=== PATIENT | male | born 1945 | race Caucasian/White ===

== ENCOUNTER 2020-08-06 06:18 | Observation (INO) ==
--- NOTE | 2020-07-12 13:48 | PAT Medication Instructions ---
Medication Instructions Date of Service July 12, 2020 Home Medications Medication Instructions Recorded Darrian Rueda #1 ea 07/07/20 atorvastatin 20 mg PO QPM lisinopril 20 mg PO QAM multivitamin [Multiple Vitamins] 1 tab PO QAM omega 4-xxu-mho-fish oil [Fish Oil] 1 cap PO BID apple cider vinegar 600 mg PO QPM aspirin [Aspir-81] 81 mg PO QAM cetirizine [Allergy Relief (cetirizine)] 10 mg PO QAM fluticasone propionate [Flonase] 2 spray INTRANASAL QPM gentamicin sulfate (ped) (PF) 0 mg INTRATYMPANIC UD PRN hydrocortisone 1 applic TOPICAL BID PRN ibuprofen 200 mg PO Q6H PRN sildenafil 100 mg PO DAILY PRN Continue as directed gentamicin sulfate (ped) (PF) 0 mg INTRATYMPANIC UD PRN (if needed) hydrocortisone 1 applic TOPICAL BID PRN (if needed) *Just do not use topical creams on or around surgical site within 24 hours of surgery ASK your surgeon for instructions ibuprofen 200 mg PO Q6H PRN STOP taking 2 weeks before surgery If surgery is within 2 weeks, stop taking as soon as possible. omega 5-epf-wca-fish oil [Fish Oil] 1 cap PO BID apple cider vinegar 600 mg PO QPM DO NOT take the morning of surgery lisinopril 20 mg PO QAM multivitamin [Multiple Vitamins] 1 tab PO QAM aspirin [Aspir-81] 81 mg PO QAM cetirizine [Allergy Relief (cetirizine)] 10 mg PO QAM Take morning of surgery With a small sip of water, OTHERWISE NOTHING TO EAT OR DRINK AFTER MIDNIGHT: aspirin [Aspir-81] 81 mg PO QAM (unless otherwise instructed by your surgeon) Take evening before surgery atorvastatin 20 mg PO QPM fluticasone propionate [Flonase] 2 spray INTRANASAL QPM atorvastatin 20 mg PO QPM sildenafil 100 mg PO DAILY PRN (if needed) Other Notes If you have any questions please call us at [phone] or [phone] or [phone] or [phone]
--- NOTE | 2020-07-14 08:40 | Anesthesiology Consultation ---
Date of Service July 14, 2020 Assessment & Plan (1) Encounter for pre-operative examination: COVID Status: As of 07/14 assessment, patient denies travel to endemic area, known exposure/sick contacts, or symptoms of COVID19. Patient advised to adhere to social distancing guidelines, wear a mask in public and avoid large crowds or unnecessary travel in the 2 weeks leading up to surgery. Preoperative COVID19 testing to be completed prior to surgery per surgeon's arrangements (09/03). Patient encouraged to be extra cautious/conscientious with COVID precautions between COVID testing and surgery. Patient is vaccinated for COVID. Chart Review Chart Review: Acceptable Risk for Surgery and Patient seen in Pre Admission Testing Teaching & Discussion Instructed NPO after midnight before surgery, except medications with 15 cc of water. Medication instructions provided according to the PAT guidelines. History Surgery Operation Date: 08/06/20 13:10 Proposed Procedures p Right Total Knee Arthroplasty - Darrel Currie, Height/Weight Height: 6 ft Weight: 93 kg Allergies Allergy/AdvReac Type Severity Reaction Status Date / Time Penicillins Allergy Intermediate Swelling Verified 07/09/20 07:34 hives Medications Home Medications Medication Instructions Recorded Confirmed Last Taken atorvastatin 20 mg PO QPM 12/16/17 07/09/20 05/27/18 08:30 lisinopril 20 mg PO QAM 12/16/17 07/09/20 05/27/18 08:30 multivitamin [Multiple Vitamins] 1 tab PO QAM 12/16/17 07/09/20 05/27/18 08:30 omega 7-knc-jcb-fish oil [Fish Oil] 1 cap PO BID 12/16/17 07/09/20 05/27/18 08:30 Wheeled Walker #1 ea 07/07/20 07/07/20 Unknown apple cider vinegar 600 mg PO QPM 07/09/20 07/09/20 Unknown aspirin [Aspir-81] 81 mg PO QAM 07/09/20 07/09/20 Unknown cetirizine [Allergy Relief 10 mg PO QAM 07/09/20 07/09/20 Unknown (cetirizine)] fluticasone propionate [Flonase] 2 spray INTRANASAL QPM 07/09/20 07/09/20 Unknown gentamicin sulfate (ped) (PF) 0 mg INTRATYMPANIC UD PRN 07/09/20 07/09/20 Unknown hydrocortisone 1 applic TOPICAL BID PRN 07/09/20 07/09/20 Unknown ibuprofen 200 mg PO Q6H PRN 07/09/20 07/09/20 Unknown sildenafil 100 mg PO DAILY PRN 07/09/20 07/09/20 Unknown Past Medical History Medical History Arthritis History of COVID-19 DX'D 12/2019 [place]SOB, COUGH, ACHINESS-RECOVERED AT HOME-NO RESIDUAL SYMPTOMS Hyperlipidemia Hypertension Rectal bleeding s/p hemorrhoidectomy, denies recent bleeding Exercise / Class Metabolic Activity II 4-5 Yardwork/Stairs/Walk up hill Past Family History Family History Father Family history of diabetes mellitus Other No significant family history Past Surgical History Surgical History H/O hemorrhoidectomy History of carpal tunnel release RT. 04/09/18. MAC no issues. /LEFT History of ear surgery had surgery about 40 years ago and has had ear infections since History of vascular access device picc line insertion and removal 2019 - ear infection and needed antibiotic Hx of colonoscopy Nausea and vomiting after administration of anesthetic agent after carpal tunnel release, in the car after discharge. No issues with colonoscopy Past Anesthesia History No Hx of Anesthesia Complications and No Family Hx of Anesthesia Complications History of PONV History of PONV (single episode after CTR) and Hx of Motion Sickness (in a boat) Social History Smoking Status: Former smoker Do You Dip or Chew Tobacco: No Smoking End Date: QUIT AGE 22'S Hx Alcohol Use: Yes Alcohol type: beer alcohol intake frequency: a few times a week Hx Substance Use: No substance use type: does not use Review of Systems Pt denies any recent chest pain, shortness of breath, palpitations, cough, fever, URI, or uncontrolled acid reflux (gets occasionally, take rolaids PRN) Physical Exam Vital Signs BP: 131/86 P: 74bpm SPO2: 97% RA T: 98.3 F R: 16 ENMT Mouth: + dental restorations (few gold crowns); no chipped teeth and no loose teeth Thyromental Distance: < 3.5 Finger Breadths (3) Mallampati Class: I Neck normal visual inspection; neck extension not limited Respiratory normal respiratory effort, lungs clear to auscultation Cardiovascular RRR, no murmur, no edema Vessels: no carotid bruit Lab Results Anesthesia Preop Results Results Anesthesia Widget: WBC 6.29 K/uL (4.8-10.8) 07/14/20 Hgb 14.2 g/dL (14.0-18.0) 07/14/20 Hct 42.1 % (42-52) 07/14/20 Plt 256 K/uL (130-400) 07/14/20 Na 138 mmol/L (136-145) 07/14/20 K 4.5 mmol/L (3.5-5.1) 07/14/20 Cl 108 mmol/L (98-107) H 07/14/20 CO2 24 mmol/L (21-32) 07/14/20 BUN 18 mg/dl (7-18) 07/14/20 Creat 0.86 mg/dl (0.6-1.4) 07/14/20 Glucose Level 102 mg/dl (70-99) H 07/14/20 PT 10.3 Seconds (9.0-12.0) 07/14/20 PTT 24.6 Seconds (21.0-31.0) 07/14/20 INR 1.0 (0.9-1.1) 07/14/20 Blood Type A Positive 07/14/20 Antibody Screen NEGATIVE 07/14/20 Testing Electrocardiogram Date: 09/09/19 Sinus rhythm at 95 bpm with frequent PVCs. Chest X-Ray Date: 09/09/19 Findings: + NAD and + L hemidiaphragm elevation (mild) Echocardiogram Date: 09/25/19 EF: 60-64% The LV wall thickness is normal. The LV wall motion is normal. There is no significant valvular heart disease. Stress Test Date: 06/09/20 Resting EF: 55-59% Stress echo is negative for inducible ischemia with limitation secondary to low workload achieved and with only fair visualization of LV apex post exercise. The examination is adequate to evaluate the referral indication. Exercise capacity is below average. There was an accelerated heart rate response to exercise achieving target heart rate after only 1 minute of exercise. Blood pressure response to exercise was normal. Stress EKG response was normal. The LV wall motion is normal. Stress wall motion is grossly normal with only fair visualization of the apex with exercise. The LVEF increases normally with stress. LV systolic function is normal. Grade 1 diastolic dysfunction. *Stress test reviewed by clerical clerk who in turn discussed results with patient. Agreed to continue current risk factor treatment and patient will follow up in August.
--- NOTE | 2020-08-05 06:56 | History & Physical Report ---
Date of Service August 05, 2020 Assessment & Plan (1) Osteoarthritis of right knee: We will proceed with a right total knee arthroplasty. Postoperatively he will be started on aspirin for DVT prophylaxis and kept overnight in the hospital for postoperative medical management. He plans to use energy physical therapy upon discharge. History of Present Illness Chief Complaint: Osteoarthritis of the right knee. Primary Care Provider: Sandra Fernandez DO Danny is a pleasant 75-year-old male who is been doing with chronic worsening bilateral knee pain with the right worse than the left. He has had multiple injections of his knees. He is gone on to develop a severe varus deformity. After failing extensive conservative treatment, he has elected proceed with a right total knee arthroplasty.. Allergies Allergy/AdvReac Type Severity Reaction Status Date / Time Penicillins Allergy Intermediate Swelling Verified 07/09/20 07:34 hives Home Medications Medication Instructions Recorded Confirmed Type atorvastatin 20 mg PO QPM 12/16/17 07/09/20 History lisinopril 20 mg PO QAM 12/16/17 07/09/20 History multivitamin [Multiple Vitamins] 1 tab PO QAM 12/16/17 07/09/20 History omega 2-hiv-xdi-fish oil [Fish Oil] 1 cap PO BID 12/16/17 07/09/20 History Wheeled Walker #1 ea 07/07/20 07/07/20 Rx apple cider vinegar 600 mg PO QPM 07/09/20 07/09/20 History aspirin [Aspir-81] 81 mg PO QAM 07/09/20 07/09/20 History cetirizine [Allergy Relief 10 mg PO QAM 07/09/20 07/09/20 History (cetirizine)] fluticasone propionate [Flonase] 2 spray INTRANASAL QPM 07/09/20 07/09/20 History gentamicin sulfate (ped) (PF) 0 mg INTRATYMPANIC UD PRN 07/09/20 07/09/20 History hydrocortisone 1 applic TOPICAL BID PRN 07/09/20 07/09/20 History ibuprofen 200 mg PO Q6H PRN 07/09/20 07/09/20 History sildenafil 100 mg PO DAILY PRN 07/09/20 07/09/20 History Past Med/Surg History Medical History Arthritis History of COVID-19 DX'D 12/2019 [place]SOB, COUGH, ACHINESS-RECOVERED AT HOME-NO RESIDUAL SYMPTOMS Hyperlipidemia Hypertension Rectal bleeding s/p hemorrhoidectomy, denies recent bleeding Surgical History H/O hemorrhoidectomy History of carpal tunnel release RT. 04/09/18. MAC no issues. /LEFT History of ear surgery had surgery about 40 years ago and has had ear infections since History of vascular access device picc line insertion and removal 2019 - ear infection and needed antibiotic Hx of colonoscopy Nausea and vomiting after administration of anesthetic agent after carpal tunnel release, in the car after discharge. No issues with colonoscopy Family History Father Family history of diabetes mellitus Other No significant family history Social History Smoking Status: Former smoker Second Hand Exposure: No; Hx Alcohol Use: Yes Alcohol type: beer Hx Substance Use: No Preferred Language: Maltese Communication Ability: Effective Freight Tallier Required: No Beliefs That Will Affect Care: None marital status: Current Living Situation: Spouse current occupational status: retired Feels Safe at Home: Yes Assistive Devices: Glasses Review of Systems All systems reviewed & are unremarkable except as noted in HPI & below. Physical Exam On physical examination of the right knee, he does have a significant varus deformity. He has tenderness palpation along the medial joint line. He has a trace effusion. He has range of motion from 5 to 125 degrees.. Constitutional WD/WN, vitals as above Eyes PERRL, conjunctivae normal, anicteric sclerae ENMT external ear and nose normal, oropharynx normal Neck trachea midline, no thyromegaly Respiratory normal respiratory effort Cardiovascular RRR, no murmur, no edema Gastrointestinal (Abdomen) normal bowel sounds, soft, nontender, no hepatosplenomegaly Psychiatric A+Ox3, euthymic affect Results & Data Results & Data Laboratory Results . Diagnostic Findings X-rays of the right knee show advanced osteoarthritis with joint space narrowing, osteophyte formation, and kuvm-xd-xisp articulation. Mostly involves the medial compartment.. PG Care Time/CCT Total # of Minutes Spent Total Time Spent with Patient: Total time spent is greater than 50% in group rooms coordinator rdination of care (as documented) at patient's floor/unit and/or counseling patient: Coding Level of Care Code None Diagnoses Osteoarthritis of right knee M17.11
[~2020-08-06 06:18] MED LIST: ACETAMINOPHEN 500 MG TAB PO SCH; ANCEF - ALLERGY NOTED TO ORDERED MEDICATION SCH; FAMOTIDINE 20 MG TAB PO SCH; GABAPENTIN 300 MG CAP PO SCH; LR 500ML BOLUS, THEN 15ML/HR IV SCH; LR 60ML/HR IV SCH; ROPIVACAINE 0.5% HCL/PF 150 MG, BUPIVACAINE 0.75% MPF 20 ML, EPINEPHrine 30MG/30ML (OR ... INSTIL SCH; TRANEXAMIC ACID 1,000 MG **IV Intra-op IV SCH; TRANEXAMIC ACID 1,000 MG **IV Pre-op IV SCH; ceFAZolin 2000MG 2,000 MG/15 ML SYR IV SCH; dexAMETHasone 4 MG TAB PO SCH
[2020-08-06] MEDS ORDERED: BUPIVACAINE 0.25% 30 ML VIAL ONE (06:58)
[2020-08-06] MEDS ORDERED: BUPIVACAINE 0.5 % 5 MG/1 ML PF 10ML VIAL ONE (06:58)
[2020-08-06] MEDS ORDERED: PROPOFOL IV EMULSION 10 MG/ML 20 ML VIAL IV ONE ×2 (07:27→09:25)
[2020-08-06] MEDS ORDERED: fentaNYL citrate 100 MCG/2 ML VIAL ONE (07:27)
[2020-08-06] MEDS ORDERED: LIDOCAINE 2% 2 ML VIAL/AMP(20MG/ML) INFIL ONE (07:27)
[2020-08-06] MEDS ORDERED: MIDAZOLAM HCL 1 MG/ML 2ML VIAL ONE (07:28)
[2020-08-06] MEDS ORDERED: ePHEDrine sulfate 50 MG/ML AMP IV PRN (08:14)
[2020-08-06] MEDS ORDERED: ONDANSETRON INJ 2 MG/ML 2 ML VIAL IV PRN ×2 (08:14→13:26)
[2020-08-06] MEDS ORDERED: ATROPINE SULFATE 0.1 MG/ML 10ML SYR IV PRN (08:14)
[2020-08-06] MEDS ORDERED: fentaNYL citrate 100 MCG/2 ML VIAL IV PRN (08:14)
--- NOTE | 2020-08-06 08:16 | History & Physical Bridge Note ---
Date of Service August 06, 2020 History & Physical Bridge Note I have examined the patient, reviewed the History & Physical and in the interval since the performance of the History & Physical I have noted the following changes of clinical significance: no changes noted
[2020-08-06] MEDS ORDERED: ORTHO JOINT ANESTHETIC ONE (08:41)
--- NOTE | 2020-08-06 10:38 | Operative Report ---
PG Post Operative Report Pre & Post Diagnosis Operation Date: 08/06/20 08:50 Pre-Op Diagnosis: Degenerative Joint Disease Right Knee Post-Op Diagnosis: Degenerative Joint Disease Right Knee I identified the patient and participated in the time-out.: Yes Procedure Operation Date: 08/06/20 08:50 Actual Procedures p Right Total Knee Arthroplasty, Cemented(Right) - Darrel Currie DO Surgeon Darrel Currie DO Jailkeeper Darrel Kemp PAC Estimated Blood Loss 10 Findings Consistent with Post-Op Diagnosis Specimens Right femoral and tibial bone Complications none Disposition Disposition: Recovery Room Indications Danny is a pleasant 75-year-old male who is been doing with chronic worsening right knee pain. X-rays and clinical examination are diagnostic for advanced osteoarthritis of the right knee. After failing conservative treatment, he elected proceed with a right total knee arthroplasty. Description of Procedure Implants used: I used a Migel Persona total knee arthroplasty system with a size 12 PS femur, H tibia with a 30 mm stem, 38 patella, and a size 10 CPS polyethylene bearing. All components were cemented in place with Simplex HV cement. Danny arrived [facility] for the above procedure. He was seen in the preoperative holding area and the operative extremity was identified and signed. He was given a preoperative antibiotic, TXA, a spinal anesthetic and an adductor nerve block. He was taken back to the operating room and laid on the table in supine position. He was given basic sedation. The operative knee was then prepped and draped in sterile fashion. A timeout was done, and the patient and the operative extremity was properly identified. A midline incision was made directly over the patella. Dissection was taken down to the extensor mechanism. A subvastus arthrotomy was used. The medial retinaculum was released and the fat pad was mostly excised. The knee was flexed and the ACL, PCL, and meniscus were removed. A drill was sent down the center of the femoral canal followed by an intramedullary karlene. Off that karlene a distal femoral cutting block was placed. 9 mm was resected off the distal femur at 5 of valgus. A posterior referencing AP sizing guide was then placed on the distal femur. The femur measured to be a size 12. 2 drill holes were placed in 3 of external rotation. A 4-in-1 cutting block was then impacted into place. Anterior, posterior, and chamfer cuts were then made. The proximal tibia was then exposed. An external tibial alignment guide was placed. A tibial cut guide was then anchored in place and the proximal tibia was then resected. The posterior aspect of the knee was then opened up and any additional meniscus fragments and osteophytes were removed. The tibia measured to be a size H. The tibial plate was then placed in the appropriate rotation and the tibia was drilled and punched. Trial components were then placed. I used a size 10 CPS polyethylene insert. The knee was brought through a full range of motion and felt to be stable. The peg holes for the femoral component were then drilled. The patella was then everted and 9 mm was resected off the posterior aspect of the patella. The patella measured to be a size 38. 3 peg holes were then drilled. A trial patella was placed. The knee was once again brought through a full range of motion and felt to be s table. Trial components were then removed. The surrounding soft tissues were injected with 100 cc of an orthopedic pain control cocktail. All components were then cemented into place with Simplex HV cement. The final polyethylene insert was then snapped into place. Once cement was dry the tourniquet was deflated. Hemostasis was obtained. A dilute betadyne lavage was then done for 3 minutes. The joint was then irrigated with normal saline solution. The subvastus arthrotomy was then closed with #1 Vicryl suture. The skin was closed with 2-0 Vicryl, 3-0V lock suture, and shae. A soft compressive dressing was placed. He was then transferred to a hospital bed and taken to the postanesthesia care unit in stable condition. He tolerated the procedure well. Darrel Kemp PA-C, was present for the entire procedure. He was critical for patient positioning, prepping, draping, retraction exposure, wound closure and application of sterile dressing. I attest to the content of the Intraoperative Record and any orders documented therein. Any exceptions are noted below.
--- NOTE | 2020-08-06 11:41 | XRay Report ---
XR knee RT 1 or 2V routine CLINICAL HISTORY: Postoperative evaluation. COMPARISON: Right knee radiographs July 07, 2020. FINDINGS: Alignment of the total right knee arthroplasty is anatomic. There is no periprosthetic fra cture or unexpected radiopaque foreign body. There are skin shae. Lucency adjacent to the tibial c omponent is likely postsurgical. IMPRESSION: Status post total right knee arthroplasty. No periprosthetic fracture. No unexpected radi opaque foreign bodies. ACT 112: Negative or not required by law. Electronically signed by: Jayant Dean M.D. 08/06/2020 11:40 AM
[2020-08-06] MEDS ORDERED: bisacodyL 10 MG SUPP PR PRN (13:26)
[2020-08-06] MEDS ORDERED: METOCLOPRAMIDE HCL INJ 5 MG/ML 2 ML VIAL IV PRN (13:26)
[2020-08-06] MEDS ORDERED: MAGNESIUM HYDROXIDE SUSP 30 ML UDC PO PRN (13:26)
[2020-08-06] MEDS ORDERED: SODIUM CHLORIDE 0.9% 1000ML 1,000 ML IV SCH (13:26)
[2020-08-06] MEDS ORDERED: HYDROCORTISONE 2.5% CR 30 GM TUBE EXT PRN (13:26)
[2020-08-06] MEDS ORDERED: oxyCODONE HCL IR 5 MG TAB (IMMEDIATE RELEASE) PO PRN (13:26)
[2020-08-06] MEDS ORDERED: NALOXONE HCL 0.4 MG/1 ML VIAL/CARP IV PRN (13:26)
[2020-08-06] MEDS ORDERED: NON-FORMULARY MEDICATION (Sildenafil 100 mg Tablet) PO PRN (13:26)
[2020-08-06] MEDS ORDERED: HYDROmorphone INJ 0.5 MG/0.5 ML SYR IV PRN (13:26)
--- NOTE | 2020-08-06 14:23 | Anesthesiology Progress Note ---
Date of Service August 06, 2020 Anesthesia Post Procedure Vital Signs Vital Signs: Temp Pulse Pulse Resp BP BP Pulse Ox 08/06/20 13:58 36.5 C 76 18 136/62 100 08/06/20 13:30 36.7 C 68 18 142/87 H 97 08/06/20 13:00 36.6 C 78 16 143/89 H 97 08/06/20 12:48 36.4 C L 67 16 138/91 100 08/06/20 12:30 62 18 117/79 99 08/06/20 12:15 71 18 121/77 97 08/06/20 12:00 62 16 114/78 98 08/06/20 11:50 36.6 C 58 L 16 115/74 99 08/06/20 11:40 69 16 110/70 98 08/06/20 11:30 67 16 133/84 98 08/06/20 11:20 66 16 122/79 100 08/06/20 11:10 73 16 110/72 97 08/06/20 11:03 36.6 C 68 16 111/73 98 08/06/20 07:20 36.7 C 81 18 152/92 H 95 Transfer of Care Handoff Completed per policy Notes Mental Status: alert / awake / arousable and participated in evaluation Patient Amnestic to Procedure: Yes Nausea / Vomiting: adequately controlled Pain: adequately controlled Airway Patency, RR, SpO2: stable & adequate BP & HR: stable & adequate Hydration State: stable & adequate Neuraxial Anesthesia: was administered and sensory block is resolving Anesthetic Complications: no major complications apparent and Pt Satisfied with anesthetic care
[2020-08-06] MEDS: ACETAMINOPHEN 500 MG TAB PO SCH ×2 (15:16→21:02)
[2020-08-06] MEDS: KETOROLAC TROMETHAMINE 15 MG/ML VIAL IV SCH ×2 (15:17→21:02)
[2020-08-06] MEDS: ceFAZolin 2000MG 2,000 MG/15 ML SYR IV SCH (19:09)
[2020-08-06] MEDS ORDERED: FLUTICASONE PROPIONATE NA SPR 16 GM BTL SCH (21:00)
[2020-08-06] MEDS ORDERED: SENNA 8.6 MG TAB PO SCH (21:00)
[2020-08-06] MEDS ORDERED: ATORVASTATIN 20 MG TAB PO SCH (21:00)
[2020-08-06] MEDS: ASPIRIN 81 MG ECTAB PO SCH (21:03)
[2020-08-06] MEDS: DOCUSATE SODIUM 100 MG CAP PO SCH (21:07)
[2020-08-07] MEDS: ceFAZolin 2000MG 2,000 MG/15 ML SYR IV SCH (02:42)
[2020-08-07] MEDS: KETOROLAC TROMETHAMINE 15 MG/ML VIAL IV SCH ×2 (05:16→11:02)
[2020-08-07] MEDS: ACETAMINOPHEN 500 MG TAB PO SCH (05:16)
[2020-08-07 07:16] VITALS: TEMP 97.7; O2SAT 99
--- NOTE | 2020-08-07 07:43 | Orthopedic Progress Note ---
Date of Service August 07, 2020 Assessment & Plan (1) Status post right knee replacement: Overall he is doing very well. Is not having much pain in the right knee. He will be seen by physical therapy today for ambulation and range of motion exercises he is on aspirin for DVT prophylaxis. He can be discharged home later today. He will follow-up with orthopedics in 2 weeks. Subjective Avinash was seen and examined at bedside this morning. Overall is doing very well. He does not have much pain in the right knee. He said the nerve block just wore off late last night. He has not been ambulating on the knee yet. He has no complaints.. Review of Systems All systems reviewed & are unremarkable except as noted in HPI & below. Physical Exam On physical examination of the right knee, the dressing is clean and dry. His leg is out full extension. He has active dorsiflexion and plantarflexion of his right ankle.. Results & Data Results & Data Laboratory Results . Diagnostic Findings Postoperative x-rays of the right knee show the prosthesis to be in anatomic alignment without any evidence of fracture, dislocation, or loosening. PG Care Time/CCT Total # of Minutes Spent Total Time Spent with Patient: Total time spent is greater than 50% in coordination of care (as documented) at patient's floor/unit and/or counseling patient: Coding Level of Care Code 94835 Post Operative Follow-Up Diagnoses Status post right knee replacement Z96.651
--- NOTE | 2020-08-07 07:44 | Discharge Summary ---
Date of Service August 07, 2020 Admission HPI (Per Admitting) Danny is a pleasant 75-year-old male who is been doing with chronic worsening bilateral knee pain with the right worse than the left. He has had multiple injections of his knees. He is gone on to develop a severe varus deformity. After failing extensive conservative treatment, he has elected proceed with a right total knee arthroplasty.. Admission Exam (Per Admitting) On physical examination of the right knee, he does have a significant varus deformity. He has tenderness palpation along the medial joint line. He has a trace effusion. He has range of motion from 5 to 125 degrees.. Principal Diagnosis Same as "Discharge Diagnosis" noted below under Discharge Instructions. Discharge Exam On physical examination of the right knee, the dressing is clean and dry. His leg is out full extension. He has active dorsiflexion and plantarflexion of his right ankle.. Discharge Data Procedures Performed Operation Date: 08/06/20 08:50 Actual Procedures p Right Total Knee Arthroplasty, Cemented(Right) - Darrel Currie DO Ordered Studies 08/06/20 05:00 US - OR guided needle placemen Routine Hospital Course (1) Status post right knee replacement: On August 06, 2020 Tani arrived at [facility] and underwent a right total knee arthroplasty without complication. Postoperatively he was started on aspirin for DVT prophylaxis and transferred to the general orthopedic floors. His hospital course was uneventful. On postop day #1 his vital signs were stable and his pain was well controlled. He was able to participate well with physical therapy doing ambulation and range of motion exercises. He was then discharged to home. He will follow-up with orthopedics in 2 weeks. PG Care Time/CCT Total # of Minutes Spent Total Time Spent with Patient: Total time spent is greater than 50% in coordination of care (as documented) at patient's floor/unit and/or counseling patient: Discharge Plan Discharge Items Patient Disposition: Home - Home Health Services Reason For Visit: Degenerative Joint Disease Right Knee Discharge Diagnosis: Right knee replacement Activity: As commented below Non-emergency contact: Surgeon Call non-emergency contact if: your wound has increased redness and your wound has increased drainage Follow-up/Referrals: Sandra Fernandez DO [Primary Care Provider] - Diet: Regular Addtl Attending Provider Instructions: Activity and Therapy Recommendations: * If you are using [facility] then therapy will be provided at your home until they feel you have accomplished all of your goals. * If you are using [facility] then Physical Therapy will be provided until they feel you are ready to start Outpatient Physical Therapy. * If you are not using home therapy then Outpatient Physical Therapy should start about 3-5 days from your day of surgery. Therapy will last about 6-10 weeks * It is important not to put a pillow under your knee when you are relaxing or sleeping. It is just as important to make sure you are getting your knee perfectly straight as it is to regain your knee bend. * You were shown a series of exercises in the hospital. Do these exercises three times each day including the exercises you were shown in physical therapy. * Get up and walk several times each day. For the first four weeks, try not to stand or walk for more than one hour at a time. If you do stand or walk for more than one hour, you will not hurt anything, but your leg will likely swell. * As you feel comfortable, you may change from the walker or crutches to a cane and then to independent walking. Medications: * Narcotic You will likely be sent home from the hospital with a prescription for the narcotic pain medication that worked best throughout your stay. * Aspirin Most patients will be required to take Aspirin 81mg twice a day for 6 weeks after surgery. This is obtained [id number] and a prescription is not necessary. * Other medications may be prescribed for specific circumstances. If you have any questions, please call the office at . * Resume previous home medications unless otherwise instructed TEDs/Elastic Stockings: The white elastic stockings help limit swelling and prevent blood clots from forming in your legs.~ The more you wear them, the more they work. Wear them for six weeks. Dressing Care: The dressing can be changed after physical therapy on postop day #1. Daily dry dressing changes for a few days, especially if the incision is still draining some. If the incision is not draining then you may leave the shae open to air. If there is a little bit of drainage or if the shae are getting stuck on your clothing then cover the incision with a dry dressing. The shae will be removed at your 2 week follow-up appointment. Showering: You may shower 5 days from the day of surgery as long as the incision is no longer draining. You may shower with the shae exposed. Let soapy water run over the shae and pat them dry. Do not scrub or soak the incision. Things To Watch For: * Drainage from the incision site that occurs more than one week after your surgery. * Increased redness at the incision site. * Fever above 102 degrees Fahrenheit. * Unusual chest pain or shortness of breath. * Call [facility] at with any of the above problems Follow-Up Visit: Follow-up with Dr. Currie's PA (Darrel Kemp) 2-3 weeks after your day of surgery. He will remove your shae and answer any questions. If you have any additional questions or concerns, Dr Currie is usually in the office at the same time and will be available An appointment was probably scheduled when you signed-up for surgery in the office. If you have any questions call Office Instructions: More detailed instructions as well as Frequently Asked Questions were provided in a folder by our office when you signed-up for surgery. Please review these instructions when you get home. If you have any further questions or concerns, please feel free to call the office at [phone] Pending Studies at Discharge: No Stand-Alone Forms: [facility], Smoking Cessation Medications and DC Order Prescriptions: New oxycodone 5 mg Tablet 5 mg PO Q4H PRN (Reason: pain) Qty: 60 RF: 0 Continued (DME) Wheeled Walker Misc See Rx Instructions .MEDSUPPLY Qty: 1 RF: 0 omega 1-sgj-xxh-fish oil [Fish Oil] 1,000 mg (120 mg-180 mg) Capsule 1 cap PO BID RF: 0 lisinopril 20 mg Tablet 20 mg PO QAM RF: 0 atorvastatin 20 mg Tablet 20 mg PO QPM RF: 0 multivitamin [Multiple Vitamins] Tablet 1 tab PO QAM RF: 0 ibuprofen 200 mg Capsule 200 mg PO Q6H PRN (Reason: Pain) RF: 0 apple cider vinegar 600 mg Capsule 600 mg PO QPM RF: 0 hydrocortisone 2.5 % Cream 1 applic TOPICAL BID PRN (Reason: Rash) RF: 0 cetirizine [Allergy Relief (cetirizine)] 10 mg Tablet 10 mg PO QAM RF: 0 fluticasone propionate [Flonase] 50 mcg/actuation [place],Suspension 2 spray INTRANASAL QPM RF: 0 sildenafil 100 mg Tablet 100 mg PO DAILY PRN (Reason: Erectile Dysfunction) RF: 0 Changed aspirin 81 mg Tablet,Delayed Release (Dr/Ec) 81 mg PO BID 42 Days Qty: 0 RF: 0 Discharge Orders: Discharge Order (Routine); Ordered 08/07/20 Ordered By: Darrel Currie Admission Data Admit Date/Time: 08/06/20 11:04 Attending Provider: Darrel Currie Admit Provider: Darrel Currie Primary Care Provider: Sandra Fernandez
[2020-08-07] MEDS ORDERED: dexAMETHasone 4 MG TAB PO SCH (08:00)
[2020-08-07] MEDS: ASPIRIN 81 MG ECTAB PO SCH (08:34)
[2020-08-07] MEDS ORDERED: MULTIVITAMIN TAB PO SCH (09:00)
[2020-08-07] MEDS ORDERED: CETIRIZINE HCL 10 MG TABLET PO SCH (09:00)
[2020-08-07] MEDS ORDERED: lisinopril 20 MG TAB PO SCH (09:00)
[2020-08-07] MEDS: DOCUSATE SODIUM 100 MG CAP PO SCH (09:01)
[2020-08-07 11:34] VITALS: BP 135/80; PULSE 67
== END 2020-08-07 13:00 | disposition home health service (06) ==
LOC: 3E 06:18 → ASU 06:18

== ENCOUNTER 2021-04-15 09:28 | Observation (INO) ==
--- NOTE | 2021-04-08 10:04 | Anesthesiology Consultation ---
Date of Service April 08, 2021 Assessment & Plan (1) Encounter for pre-operative examination: Chart Review Chart Review: Acceptable Risk for Surgery (pending preop Covid testing and DOS labs ) and Patient NOT seen in Pre Admission Testing -Will need CBC with diff and coags for stat AM of surgery -Discussed with Dr. Alberts- due to to hx of SVT after epidural and IV sedation on 02/26/21- patient is NOT an acceptable Outpatient Joint candidate. Surgeon's office informed. Per nursing assessment 04/07/2021, Patient denies any recent travel. No known Covid infection in the past 90 days. Patient is fully vaccinated for Covid. No known Covid positive exposures or Covid related symptoms. Preop Covid testing scheduled 04/13/21= will await results Patient seen by cardiology 03/28/2021 = patient seen for cardiology follow-up and preop evaluation. History of paroxysmal SVT, hypertension, dyslipidemia. Patient was to have left knee replacement at 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 Treated with IV esmolol by anesthesia. Case was canceled. Cardiology consult requested. Patient started on metoprolol. Underwent outpatient CO monitor which demonstrated NSR with several episodes of nonsustained SVT, longest lasting 14 seconds. Average HR 73. Metoprolol was increased. Patient presents today feeling wellwould like to proceed with reschedule knee replacement. Stable cardiac symptoms. Continue metoprolol. Recommend patient takes metoprolol a day of surgery. No further cardiac testing warranted prior to rescheduling orthopedic knee surgery. Per anesthesiology progress note 02/25/21= "On arrival to OR, after pt given IV sedation and epidural anesthesia, he developed SVT to approximately 150/min. SBP was over 100mmHg. Carotid massage, IV phenylephrine, and IV esmolol were given without effect. Case cancelled and pt taken to PACU. In PACU, sinus rhythm returned. Cardiology consulted and visited pt in PACU. Pt awake and VSS, discharged after meeting criteria. He is to f/u with cardiology prior to re- scheduling." Right TKA 08/06/20= Done under SAB at L4-L5 with 1 attempt History Surgery Operation Date: 04/15/21 07:00 Proposed Procedures p Left Total Knee Arthroplasty - Darrel A Kush, DO Height/Weight Height: 6 ft Weight: 90.718 kg Allergies Allergy/AdvReac Type Severity Reaction Status Date / Time Penicillins Allergy Intermediate Swelling Verified 04/07/21 16:40 hives Medications Home Medications Medication Instructions Recorded Confirmed Last Taken atorvastatin 20 mg tablet 20 mg PO QPM 12/16/17 04/07/21 02/24/21 19:00 lisinopril 20 mg tablet 20 mg PO QAM 12/16/17 04/07/21 02/24/21 08:00 multivitamin (Multiple Vitamins) 1 tab PO QAM 12/16/17 04/07/21 02/24/21 08:00 omega 0-mqi-wus-fish oil 1,000 mg 1 cap PO BID 12/16/17 04/07/21 02/18/21 (120 mg-180 mg) capsule (Fish Oil) Darrian Rueda #1 ea 07/07/20 02/18/21 Unknown apple cider vinegar 600 mg capsule 600 mg PO QPM 07/09/20 04/07/21 02/18/21 cetirizine 10 mg tablet (Allergy 10 mg PO QAM 07/09/20 04/07/21 02/24/21 Relief (cetirizine)) fluticasone propionate 50 2 spray INTRANASAL QPM 07/09/20 04/07/21 02/24/21 19:00 mcg/actuation nasal spray,suspension hydrocortisone 2.5 % topical cream 1 applic TOPICAL BID PRN 07/09/20 04/07/21 08/05/20 20:30 ibuprofen 200 mg capsule 200 mg PO Q6H PRN 07/09/20 04/07/21 Unknown sildenafil 100 mg tablet 100 mg PO DAILY PRN 07/09/20 04/07/21 1 Week Ago ~07/30/20 clindamycin HCl 300 mg capsule 600 mg PO ONCE 1 Days #2 cap 11/24/20 04/07/21 Unknown aspirin 81 mg tablet,delayed 81 mg PO QAM 12/24/20 04/07/21 02/24/21 release metoprolol tartrate 25 mg tablet 37.5 mg PO QAM 04/07/21 04/07/21 Unknown Past Medical History Medical History Arthritis History of COVID-19 DX'D 12/2019 [place]-SOB, COUGH, ACHINESS-RECOVERED AT HOME-NO RESIDUAL SYMPTOMS Hyperlipidemia Hypertension SVT (supraventricular tachycardia) - Dx'ed 02/25/21 after patient received epidural and IV sedation for left TKA- case cancelled- did have work up with cardio - Recently started on metoprolol - follows with Dr. Burgess Past Family History Family History Father Family history of diabetes mellitus Other No family history of adverse response to anesthesia No significant family history Past Surgical History Surgical History H/O hemorrhoidectomy History of carpal tunnel release RT/LEFT History of ear surgery had surgery +40 years ago and has had ear infections since History of total knee replacement RT History of vascular access device picc line insertion and removal 2018 - ear infection and needed antibiotic Hx of colonoscopy Nausea and vomiting after administration of anesthetic agent Social History Smoking Status: Former smoker tobacco type: cigarettes Do You Dip or Chew Tobacco: No Smoking End Date: 42 years ago Hx Alcohol Use: Yes Alcohol type: beer alcohol intake frequency: a few times a week substance use type: does not use Lab Results Anesthesia Preop Results Results Anesthesia Widget: Na 138 mmol/L (136-145) 02/25/21 K 4.1 mmol/L (3.5-5.1) 02/25/21 Cl 107 mmol/L (98-107) 02/25/21 CO2 26 mmol/L (21-32) 02/25/21 BUN 15 mg/dl (6-23) 02/25/21 Creat 0.93 mg/dl (0.6-1.4) 02/25/21 Glucose Level 100 mg/dl (70-99(Fasting)) H 02/25/21 Blood Type A Positive 02/25/21 Antibody Screen NEGATIVE 02/25/21 Testing Electrocardiogram Date: 03/28/21 Findings: + NSR @ (64bpm) Normal EKG per cardio Chest X-Ray Date: 12/27/20 Findings: + NAD A 1.3 cm nodular density within the base of the left lower lobe. This could represent a nipple shadow but was not seen on the prior studies. Follow-up PA and lateral views of the chest with nipple markers and oblique views are recommended for confirmation. (Per surgeon's office- patient getting repeat CXR done 12/28/20- see below) CXR 12/28/20= No pulmonary nodule identified. The possible left lower lung nodule on chest radiograph of December 27, 2020 is not confirmed on this exam and was likely artifactual. Echocardiogram Date: 09/25/19 EF: 60-64% Other Findings: + diastolic dysfunction (Grade I ) The LV wall thickness is normal. The LV wall motion is normal. There is no significant valvular heart disease. Stress Test Date: 06/09/20 Resting EF: 55-59% Stress echo is negative for inducible ischemia with limitation secondary to low workload achieved and with only fair visualization of LV apex post exercise. The examination is adequate to evaluate the referral indication. Exercise capacity is below average. There was an accelerated heart rate response to exercise achieving target heart rate after only 1 minute of exercise. Blood pressure response to exercise was normal. Stress EKG response was normal. The LV wall motion is normal. Stress wall motion is grossly normal with only fair visualization of the apex with exercise. The LVEF increases normally with stress. LV systolic function is normal. Grade 1 diastolic dysfunction. Mild MR. Mild TR. *Stress test reviewed by hydro electric station operator who in turn discussed results with patient. Agreed to continue current risk factor treatment and patient will follow up routinely with cardio Other Testing 7 Day Event Monitor 02/28/21= Patient had a min HR of 48 bpm, max HR of 167 bpm, and avg HR of 73 bpm. Predominant underlying rhythm was Sinus Rhythm. 9 Supraventricular Tachycardia runs occurred, the run with the fastest interval lasting 4 beats with a max rate of 167 bpm, the longest lasting 14 beats with an avg rate of 140 bpm. Some episodes of Supraventricular Tachycardia may be possible Atrial Tachycardia with variable block. Isolated SVEs were rare (<1.0%), SVE Couplets were rare (<1.0%), and SVE Triplets were rare (<1.0%). Isolated VEs were occasional (3.2%, 04104), VE Couplets were rare (<1.0%, 816), and VE Triplets were rare (<1.0%, 25). Ventricular Bigeminy and Trigeminy were present.
--- NOTE | 2021-04-14 11:50 | History & Physical Report ---
Date of Service April 14, 2021 Assessment & Plan (1) Osteoarthritis of left knee: We will proceed with a left total knee arthroplasty. Postoperatively he will be started on aspirin for DVT prophylaxis and kept overnight in the hospital for postoperative medical management. He plans [facility]. History of Present Illness Chief Complaint: Osteoarthritis of the left knee. Primary Care Provider: Sandra Fernandez DO Delgado is a pleasant 75-year-old male who is been dealing with chronic increasing left knee pain. X-rays and clinical examination have been diagnostic for advanced osteoarthritis of the left knee. After failing conservative treatment, he has elected proceed with a left total knee arthroplasty. He does have a history of a right knee replacement done in August 2020 and has done well with that. Allergies Allergy/AdvReac Type Severity Reaction Status Date / Time Penicillins Allergy Intermediate Swelling Verified 04/07/21 16:40 hives Home Medications Medication Instructions Recorded Confirmed Type atorvastatin 20 mg tablet 20 mg PO QPM 12/16/17 04/07/21 History lisinopril 20 mg tablet 20 mg PO QAM 12/16/17 04/07/21 History multivitamin (Multiple Vitamins) 1 tab PO QAM 12/16/17 04/07/21 History omega 9-zgt-uyg-fish oil 1,000 mg 1 cap PO BID 12/16/17 04/07/21 History (120 mg-180 mg) capsule (Fish Oil) Darrian Walker #1 ea 07/07/20 02/18/21 Rx apple cider vinegar 600 mg capsule 600 mg PO QPM 07/09/20 04/07/21 History cetirizine 10 mg tablet (Allergy 10 mg PO QAM 07/09/20 04/07/21 History Relief (cetirizine)) fluticasone propionate 50 2 spray INTRANASAL QPM 07/09/20 04/07/21 History mcg/actuation nasal spray,suspension hydrocortisone 2.5 % topical cream 1 applic TOPICAL BID PRN 07/09/20 04/07/21 History ibuprofen 200 mg capsule 200 mg PO Q6H PRN 07/09/20 04/07/21 History sildenafil 100 mg tablet 100 mg PO DAILY PRN 07/09/20 04/07/21 History clindamycin HCl 300 mg capsule 600 mg PO ONCE 1 Days #2 cap 11/24/20 04/07/21 Rx aspirin 81 mg tablet,delayed 81 mg PO QAM 12/24/20 04/07/21 History release metoprolol tartrate 25 mg tablet 37.5 mg PO QAM 04/07/21 04/07/21 History Past Med/Surg History Medical History Arthritis History of COVID-19 DX'D 12/2019 [place]SOB, COUGH, ACHINESS-RECOVERED AT HOME-NO RESIDUAL SYMPTOMS Hyperlipidemia Hypertension SVT (supraventricular tachycardia) - Dx'ed 02/25/21 after patient received epidural and IV sedation for left TKA- case cancelled- did have work up with cardio - Recently started on metoprolol - follows with Dr. Burgess Surgical History H/O hemorrhoidectomy History of carpal tunnel release RT/LEFT History of ear surgery had surgery +40 years ago and has had ear infections since History of total knee replacement RT History of vascular access device picc line insertion and removal 2018 - ear infection and needed antibiotic Hx of colonoscopy Nausea and vomiting after administration of anesthetic agent Family History Father Family history of diabetes mellitus Other No family history of adverse response to anesthesia No significant family history Social History Smoking Status: Former smoker Second Hand Exposure: No; Hx Alcohol Use: Yes Alcohol type: beer Preferred Language: Kinyarwanda Communication Ability: Effective Senior Java Programmer Required: No Beliefs That Will Affect Care: None marital status: Current Living Situation: Spouse current occupational status: retired Feels Safe at Home: Yes Assistive Devices: Glasses Review of Systems All systems reviewed & are unremarkable except as noted in HPI & below. Physical Exam On physical examination the left knee. He has a significant varus deformity. His stress palpation of the distal medial femoral condyle and over the medial joint line. Constitutional WD/WN, vitals as above Eyes PERRL, conjunctivae normal, anicteric sclerae ENMT external ear and nose normal, oropharynx normal Neck trachea midline, no thyromegaly Respiratory normal respiratory effort Cardiovascular RRR, no murmur, no edema Gastrointestinal (Abdomen) normal bowel sounds, soft, nontender, no hepatosplenomegaly Psychiatric A+Ox3, euthymic affect Results & Data Results & Data Laboratory Results . Diagnostic Findings X-rays of the left knee show advanced osteoarthritis with joint space narrowing, osteophyte formation, and [id number] articulation PG Care Time/CCT Total # of Minutes Spent Total Time Spent with Patient: Total time spent is greater than 50% in coordination of care (as documented) at patient's floor/unit and/or counseling patient: Coding Level of Care Code None Diagnoses Osteoarthritis of left knee M17.12
[~2021-04-15 09:28] MED LIST changes: -ANCEF - ALLERGY NOTED TO ORDERED MEDICATION SCH; +BUPIVACAINE 0.25% 30 ML VIAL ONE; +BUPIVACAINE 0.5 % 5 MG/1 ML PF 10ML VIAL ONE; +DEXAMETHASONE SOD INJ 4 MG/ML VIAL ONE; +EPINEPHrine INJ 1 MG/ML AMP ONE; -ROPIVACAINE 0.5% HCL/PF 150 MG, BUPIVACAINE 0.75% MPF 20 ML, EPINEPHrine 30MG/30ML (OR ... INSTIL SCH
[2021-04-15] MEDS ORDERED: Ketorolac (*for OR use only*) 30 MG, dexAMETHasone 4 MG, KETAMINE HCL (**OR use only) 1... INFIL SCH (09:30)
[2021-04-15 10:07] LABS: Basophils # (auto) 0.03 K/uL (0-0.2); Basophils % (auto) 0.5 %; Eosinophils # (auto) 0.07 K/uL (0-0.5); Eosinophils % (auto) 1.1 %; Hematocrit (blood only) 44.5 % (42-52); Hemoglobin 14.7 g/dL (14.0-18.0); Immature Granulocytes # (auto) 0.01 K/uL (0.00-0.02); Immature Granulocytes % (auto) 0.2 %; Lymphocytes # (auto) 1.53 K/uL (1.2-3.4); Mean Corpuscular Hemoglobin 29.1 pg (25-34); Mean Corpuscular Volume 88.1 fL (80-100); Mean Platelet Volume 10.1 fL (7.4-10.4); Monocytes # (auto) 0.57 K/uL (0.11-0.59); Monocytes % (auto) 8.6 %; Neutrophils # (auto) 4.45 K/uL (1.4-6.5); Neutrophils % (auto) 66.6 %; Platelet Count 251 K/uL (130-400); RDW Coefficient of Variation 13.9 % (11.5-14.5); RDW Standard Deviation 44.7 fL (36.4-46.3); Red Blood Count 5.05 M/uL (4.7-6.1); White Blood Count 6.66 K/uL (4.8-10.8)
[2021-04-15 10:18] LABS: Partial Thromboplastin Ratio 0.9; Partial Thromboplastin Time 25.3 Seconds (21.0-31.0); Prothrombin Time 11.1 Seconds (9.0-12.0)
--- NOTE | 2021-04-15 10:38 | History & Physical Bridge Note ---
Date of Service April 15, 2021 History & Physical Bridge Note I have examined the patient, reviewed the History & Physical and in the interval since the performance of the History & Physical I have noted the following changes of clinical significance: no changes noted
[2021-04-15] MEDS ORDERED: PROPOFOL IV EMULSION 10 MG/ML 20 ML VIAL IV ONE ×2 (10:45→12:55)
[2021-04-15] MEDS ORDERED: LIDOCAINE 2% 2 ML VIAL/AMP(20MG/ML) INFIL ONE (10:45)
[2021-04-15] MEDS ORDERED: ONDANSETRON INJ 2 MG/ML 2 ML VIAL ONE (10:45)
[2021-04-15] MEDS ORDERED: fentaNYL citrate 100 MCG/2 ML VIAL ONE (10:46)
[2021-04-15] MEDS ORDERED: MIDAZOLAM HCL 1 MG/ML 2ML VIAL ONE (11:13)
[2021-04-15] MEDS ORDERED: PHENYLEPHRINE HCL 10 MG/ML VIAL ONE (12:31)
[2021-04-15] MEDS ORDERED: DEXAMETHASONE SOD INJ 4 MG/ML VIAL IV PRN (12:39)
[2021-04-15] MEDS ORDERED: fentaNYL citrate 100 MCG/2 ML VIAL IV PRN (12:39)
[2021-04-15] MEDS ORDERED: ePHEDrine sulfate 50 MG/ML AMP IV PRN (12:39)
[2021-04-15] MEDS ORDERED: ATROPINE SULFATE 0.1 MG/ML 10ML SYR IV PRN (12:39)
--- NOTE | 2021-04-15 12:55 | Operative Report ---
PG Post Operative Report Pre & Post Diagnosis Operation Date: 04/15/21 12:20 Pre-Op Diagnosis: Degenerative Joint Disease Left Knee Post-Op Diagnosis: Degenerative Joint Disease Left Knee I identified the patient and participated in the time-out.: Yes Procedure Operation Date: 04/15/21 12:20 Actual Procedures p Left Total Knee Arthroplasty, Cemented(Left) - Darrel Currie DO Surgeon Darrel Currie DO [employer] Darrel Kemp PAC Estimated Blood Loss 10 Findings Consistent with Post-Op Diagnosis Specimens Left femoral and tibial bone Complications none Disposition Disposition: Recovery Room Indications Danny is a pleasant 75-year-old male who is been doing chronic increasing left knee pain. X-rays and clinical examination have been diagnostic for advanced osteoarthritis of the left knee. After failing conservative treatment, he elected proceed with a left total knee arthroplasty. Description of Procedure Implants used: I used a [employer] total knee arthroplasty system with a size 12 PS femur, H tibia with a 30 mm stem extension, 37 oval patella, and a size 10 CPS polyethylene bearing. All components were cemented in place with Biomet cement. Danny arrived [facility] for the above procedure. He was seen in the preoperative holding area and the operative extremity was identified and signed. He was given a preoperative antibiotic, TXA, a spinal anesthetic and an adductor nerve block. He was taken back to the operating room and laid on the table in supine position. He was given basic sedation. The operative knee was then prepped and draped in sterile fashion. A timeout was done, and the patient and the operative extremity was properly identified. A midline incision was made directly over the patella. Dissection was taken down to the extensor mechanism. A subvastus arthrotomy was used. The medial retinaculum was released and the fat pad was mostly excised. The knee was flexed and the ACL, PCL, and meniscus were removed. A drill was sent down the center of the femoral canal followed by an intramedullary karlene. Off that karlene a distal femoral cutting block was placed. 9 mm was resected off the distal femur at 5 of valgus. A posterior referencing AP sizing guide was then placed on the distal femur. The femur measured to be a size 12. 2 drill holes were placed in 3 of external rotation. A 4-in-1 cutting block was then impacted into place. Anterior, posterior, and chamfer cuts were then made. The proximal tibia was then exposed. An external tibial alignment guide was placed. A tibial cut guide was then anchored in place and the proximal tibia was then resected. The posterior aspect of the knee was then opened up and any additional meniscus fragments and osteophytes were removed. The tibia measured to be a size H. The tibial plate was then placed in the appropriate rotation and the tibia was drilled and punched. Trial components were then placed. I used a size 10 medial congruent polyethylene insert. The knee was brought through a full range of motion and felt to be stable. The peg holes for the femoral component were then drilled. The patella was then everted and 9 mm was resected off the posterior aspect of the patella. The patella measured to be a size 37 oval. 3 peg holes were then drilled. A trial patella was placed. The knee was once again brought through a full range of motion and felt to be stable. Trial components were then removed. The surrounding soft tissues were injected with 100 cc of an orthopedic pain control cocktail. All components were then cemented into place with Biomet cement. The final polyethylene insert was then snapped into place. Once cement was dry the tourniquet was deflated. Hemostasis was obtained. A dilute betadyne lavage was then done for 3 minutes. The joint was then irrigated with normal saline solution. The subvastus arthrotomy was then closed with #1 Vicryl suture. The skin was closed with 2-0 Vicryl, 3-0V lock suture, and shae. A soft compressive dressing was placed. He was then transferred to a hospital bed and taken to the postanesthesia care unit in stable condition. He tolerated the procedure well. Darrel Kemp PA-C, was present for the entire procedure. He was critical for patient positioning, prepping, draping, retraction exposure, wound closure and application of sterile dressing. I attest to the content of the Intraoperative Record and any orders documented therein. Any exceptions are noted below.
--- NOTE | 2021-04-15 13:48 | Anesthesiology Progress Note ---
Date of Service April 15, 2021 Anesthesia Post Procedure Vital Signs Vital Signs: Temp Pulse Pulse Resp BP Pulse Ox 04/15/21 13:45 60 12 109/76 98 04/15/21 13:35 65 12 112/79 100 04/15/21 13:25 70 14 117/75 100 04/15/21 13:18 36.5 C 69 14 105/65 98 04/15/21 10:08 36.9 C 87 20 134/96 97 Pain Intensity Left Knee: Pain Intensity: 5 Transfer of Care Handoff Completed per policy Notes Mental Status: alert / awake / arousable Patient Amnestic to Procedure: Yes Nausea / Vomiting: adequately controlled Pain: adequately controlled Airway Patency, RR, SpO2: stable & adequate BP & HR: stable & adequate Hydration State: stable & adequate Neuraxial Anesthesia: was administered and sensory block is resolving Anesthetic Complications: no major complications apparent and Pt Satisfied with anesthetic care
--- NOTE | 2021-04-15 13:56 | XRay Report ---
XR knee LT 1 or 2V routine HISTORY: 75 years-old Male Surgical Post Op left knee total joint arthroplasty COMPARISON: None TECHNIQUE: 2 views of the left knee FINDINGS: Total joint arthroplasty with patellar resurfacing. Anterior midline skin shae are noted along wit h expected postoperative soft tissue swelling with deep tissue air. No acute fracture, dislocation or unexpected opaque foreign body. IMPRESSION: Left knee total joint arthroplasty and patella resurfacing with expected postoperative ch anges. ACT 112: Negative or not required by law. The above report was generated using voice recognition software. It may contain grammatical, syntax o r spelling errors. Electronically signed by: Bruno Flynn M.D. 04/15/2021 1:54 PM
[2021-04-15] MEDS ORDERED: oxyCODONE HCL IR 5 MG TAB (IMMEDIATE RELEASE) PO PRN (15:02)
[2021-04-15] MEDS ORDERED: ONDANSETRON INJ 2 MG/ML 2 ML VIAL IV PRN (15:02)
[2021-04-15] MEDS ORDERED: METOCLOPRAMIDE HCL INJ 5 MG/ML 2 ML VIAL IV PRN (15:02)
[2021-04-15] MEDS ORDERED: MAGNESIUM HYDROXIDE SUSP 30 ML UDC PO PRN (15:02)
[2021-04-15] MEDS ORDERED: NON-FORMULARY MEDICATION (Sildenafil 100 mg Tablet) PO PRN (15:02)
[2021-04-15] MEDS ORDERED: HYDROCORTISONE 2.5% CR 30 GM TUBE EXT PRN (15:02)
[2021-04-15] MEDS ORDERED: HYDROmorphone INJ 0.5 MG/0.5 ML SYR IV PRN (15:02)
[2021-04-15] MEDS ORDERED: bisacodyL 10 MG SUPP PR PRN (15:02)
[2021-04-15] MEDS ORDERED: NALOXONE HCL 0.4 MG/1 ML VIAL/CARP IV PRN (15:02)
[2021-04-15] MEDS: ACETAMINOPHEN 500 MG TAB PO SCH ×2 (15:47→21:48)
[2021-04-15] MEDS: SODIUM CHLORIDE 0.9% 1000ML 1,000 ML IV SCH (15:47)
[2021-04-15] MEDS: ceFAZolin 2000MG 2,000 MG/15 ML SYR IV SCH (19:41)
[2021-04-15] MEDS: DOCUSATE SODIUM 100 MG CAP PO SCH (19:43)
[2021-04-15] MEDS: ASPIRIN 81 MG ECTAB PO SCH (19:51)
[2021-04-15] MEDS ORDERED: ATORVASTATIN 20 MG TAB PO SCH (21:00)
[2021-04-15] MEDS ORDERED: SENNA 8.6 MG TAB PO SCH (21:00)
[2021-04-15] MEDS ORDERED: FLUTICASONE PROPIONATE NA SPR 16 GM BTL SCH (21:00)
[2021-04-16] MEDS: SODIUM CHLORIDE 0.9% 1000ML 1,000 ML IV SCH (01:20)
[2021-04-16] MEDS: ceFAZolin 2000MG 2,000 MG/15 ML SYR IV SCH (03:55)
[2021-04-16] MEDS: ACETAMINOPHEN 500 MG TAB PO SCH (06:14)
[2021-04-16] MEDS ORDERED: dexAMETHasone 4 MG TAB PO SCH (08:00)
[2021-04-16] MEDS: ASPIRIN 81 MG ECTAB PO SCH (08:40)
[2021-04-16] MEDS: DOCUSATE SODIUM 100 MG CAP PO SCH (08:40)
--- NOTE | 2021-04-16 08:44 | Orthopedic Progress Note ---
Date of Service April 16, 2021 Assessment & Plan (1) Status post left knee replacement: Overall is doing very well. Is not any much pain in the left knee. He is on aspirin for DVT prophylaxis. He will be seen by physical therapy today for ambulation and range of motion exercises. He will then be discharged home later today. He can follow-up with orthopedics in 2 weeks. Subjective Avinash was seen and examined at bedside this morning. Overall is doing very well. Is not having much pain in the left knee. He has been up and ambulating to the bathroom. He has no other complaints. Review of Systems All systems reviewed & are unremarkable except as noted in HPI & below. Physical Exam On physical examination of the left knee, the dressing is clean and dry. He has active dorsiflexion plantarflexion of his left ankle. His leg is out full extension. Results & Data Results & Data Laboratory Results . Diagnostic Findings Postoperative x-rays of the left knee show the prosthesis to be in anatomic alignment without any evidence of fracture, dislocation, or loosening. PG Care Time/CCT Total # of Minutes Spent Total Time Spent with Patient: Total time spent is greater than 50% in coordination of care (as documented) at patient's floor/unit and/or counseling patient: Coding Level of Care Code 57682 Post Operative Follow-Up Diagnoses Status post left knee replacement Z96.652
--- NOTE | 2021-04-16 08:45 | Discharge Summary ---
Date of Service April 16, 2021 Admission HPI (Per Admitting) Danny is a pleasant 75-year-old male who is been dealing with chronic increasing left knee pain. X-rays and clinical examination have been diagnostic for advanced osteoarthritis of the left knee. After failing conservative treatment, he has elected proceed with a left total knee arthroplasty. He does have a history of a right knee replacement done in August 2020 and has done well with that. Admission Exam (Per Admitting) On physical examination the left knee. He has a significant varus deformity. His stress palpation of the distal medial femoral condyle and over the medial joint line. Principal Diagnosis Same as "Discharge Diagnosis" noted below under Discharge Instructions. Discharge Exam On physical examination of the left knee, the dressing is clean and dry. He has active dorsiflexion plantarflexion of his left ankle. His leg is out full extension. Discharge Data Procedures Performed Operation Date: 04/15/21 12:20 Actual Procedures p Left Total Knee Arthroplasty, Cemented(Left) - Darrel Currie DO Ordered Studies 04/15/21 05:00 US - OR guided needle placemen Routine Hospital Course (1) Status post left knee replacement: On April 15, 2021 Tani arrived at [facility] and underwent a left knee replacement for complication. He had a spinal anesthetic. Postoperatively he was started on aspirin for DVT prophylaxis and transferred to the general orthopedic floors. His hospital course was uneventful. On postop day #1 his vital signs were stable and his pain was well controlled. He was a participate well with physical therapy doing ambulation and range of motion exercises. He was then discharged to home. He will follow-up with orthopedics in 2 weeks. PG Care Time/CCT Total # of Minutes Spent Total Time Spent with Patient: Total time spent is greater than 50% in coordination of care (as documented) at patient's floor/unit and/or counseling patient: Discharge Plan Discharge Items Patient Disposition: Home - Home Health Services Reason For Visit: DJD Left Knee Discharge Diagnosis: Left knee replacement Activity: Per Instructions section Non-emergency contact: Surgeon Call non-emergency contact if: your wound has increased redness and your wound has increased drainage Follow-up/Referrals: Sandra Fernandez DO [Primary Care Provider] - Diet: Regular Addtl Attending Provider Instructions: Activity and Therapy Recommendations: * If you are using [facility] then therapy will be provided at your home until they feel you have accomplished all of your goals. * If you are using [facility] then Physical Therapy will be provided until they feel you are ready to start Outpatient Physical Therapy. * If you are not using home therapy then Outpatient Physical Therapy should start about 3-5 days from your day of surgery. Therapy will last about 6-10 weeks * It is important not to put a pillow under your knee when you are relaxing or sleeping. It is just as important to make sure you are getting your knee perfectly straight as it is to regain your knee bend. * You were shown a series of exercises in the hospital. Do these exercises three times each day including the exercises you were shown in physical therapy. * Get up and walk several times each day. For the first four weeks, try not to stand or walk for more than one hour at a time. If you do stand or walk for more than one hour, you will not hurt anything, but your leg will likely swell. * As you feel comfortable, you may change from the walker or crutches to a cane and then to independent walking. Medications: * Narcotic You will likely be sent home from the hospital with a prescription for the narcotic pain medication that worked best throughout your stay. * Aspirin Most patients will be required to take Aspirin 81mg twice a day for 6 weeks after surgery. This is obtained [id number] and a prescription is not necessary. * Other medications may be prescribed for specific circumstances. If you have any questions, please call the office at . * Resume previous home medications unless otherwise instructed TEDs/Elastic Stockings: The white elastic stockings help limit swelling and prevent blood clots from forming in your legs.~ The more you wear them, the more they work. Wear them for six weeks. Dressing Care: The dressing can be changed after physical therapy on postop day #1. Daily dry dressing changes for a few days, especially if the incision is still draining some. If the incision is not draining then you may leave the shae open to air. If there is a little bit of drainage or if the shae are getting stuck on your clothing then cover the incision with a dry dressing. The shae will be removed at your 2 week follow-up appointment. Showering: You may shower 5 days from the day of surgery as long as the incision is no longer draining. You may shower with the shae exposed. Let soapy water run over the shae and pat them dry. Do not scrub or soak the incision. Things To Watch For: * Drainage from the incision site that occurs more than one week after your surgery. * Increased redness at the incision site. * Fever above 102 degrees Fahrenheit. * Unusual chest pain or shortness of breath. * Call [facility] at with any of the above problems Follow-Up Visit: Follow-up with Dr. Currie's PA (Darrel Kemp) 2-3 weeks after your day of surgery. He will remove your shae and answer any questions. If you have any additional questions or concerns, Dr Currie is usually in the office at the same time and will be available An appointment was probably scheduled when you signed-up for surgery in the office. If you have any questions call Office Instructions: More detailed instructions as well as Frequently Asked Questions were provided in a folder by our office when you signed-up for surgery. Please review these instructions when you get home. If you have any further questions or concerns, please feel free to call the office at [phone] Pending Studies at Discharge: No Stand-Alone Forms: My [facility] Medications and DC Order Prescriptions: Continued clindamycin HCl 300 mg capsule 600 mg PO ONCE 1 Days Qty: 2 RF: 3 (DME) Wheeled Walker Misc See Rx Instructions .MEDSUPPLY Qty: 1 RF: 0 omega [id number] oil [Fish Oil] 1,000 mg (120 mg-180 mg) Capsule 1 cap PO BID RF: 0 lisinopril 20 mg Tablet 20 mg PO QAM RF: 0 atorvastatin [Lipitor] 20 mg Tablet 20 mg PO QPM RF: 0 multivitamin [Multiple Vitamins] Tablet 1 tab PO QAM RF: 0 ibuprofen 200 mg Capsule 200 mg PO Q6H PRN (Reason: Pain) RF: 0 apple cider vinegar 600 mg Capsule 600 mg PO QPM RF: 0 hydrocortisone 2.5 % Cream 1 applic TOPICAL BID PRN (Reason: Rash) RF: 0 cetirizine [Allergy Relief (cetirizine)] 10 mg Tablet 10 mg PO QAM RF: 0 fluticasone propionate 50 mcg/actuation [place],Suspension 2 spray INTRANASAL QPM RF: 0 sildenafil 100 mg Tablet 100 mg PO DAILY PRN (Reason: Erectile Dysfunction) RF: 0 metoprolol tartrate 25 mg tablet 37.5 mg PO QAM RF: 0 Changed aspirin 81 mg tablet,delayed release (DR/EC) 81 mg PO BID 42 Days Qty: 0 RF: 0 Discharge Orders: Discharge Order (Routine); Ordered 04/16/21 Ordered By: Darrel Currie Admission Data Admit Date/Time: 04/15/21 13:23 Attending Provider: Darrel Currie Admit Provider: Darrel Currie Primary Care Provider: Sandra Fernandez
[2021-04-16] MEDS ORDERED: MULTIVITAMIN TAB PO SCH (09:00)
[2021-04-16] MEDS ORDERED: CETIRIZINE HCL 10 MG TABLET PO SCH (09:00)
[2021-04-16] MEDS ORDERED: lisinopril 20 MG TAB PO SCH (09:00)
[2021-04-16] MEDS ORDERED: METOPROLOL TARTRATE 25 MG TAB PO SCH (09:00)
== END 2021-04-16 12:54 | disposition home health service (06) ==
LOC: ASU 09:28 → 3N 09:28